=== PATIENT | female | born 1960 | race Caucasian/White ===

== ENCOUNTER → 2018-11-10 | Outpatient (CLI) | payer OTHER ==
--- NOTE | 2018-11-10 09:03 | Diagnostic Imaging Report ---
EXAM: CT Abdomen and Pelvis WITHOUT contrast INDICATION: Renal stone. COMPARISON: None. TECHNIQUE: Abdomen and pelvis were scanned utilizing a multidetector helical scanner from the lung base to the pubic symphysis without administration of IV contrast. Absence of intravenous contrast decreases sensitivity for detection of focal lesions and vascular pathology. Coronal and sagittal reformations were obtained. Stone protocol is performed. IV CONTRAST: None. ORAL CONTRAST: Water RADIATION DOSE: Total DLP: 832.6 mGy*cm Dose modulation, iterative reconstruction, and/or weight based adjustment of the mA/kV was utilized to reduce the radiation dose to as low as reasonably achievable. COMPLICATIONS: None FINDINGS: LINES and TUBES: None. LOWER THORAX: Scattered coronary atherosclerosis. HEPATOBILIARY: Diffuse hepatic steatosis. No focal hepatic lesions. No biliary ductal dilation. GALLBLADDER: No radio-opaque stones or sludge. No wall thickening. SPLEEN: No splenomegaly. PANCREAS: No evidence of focal masses or ductal dilatation. ADRENALS: No adrenal nodules KIDNEYS/URETERS: There are scattered bilateral 1 mm nonobstructing renal stones, for example in the left upper pole on coronal image 74 and right lower pole on image 78. No hydronephrosis. No evidence of solid mass. Hyperdense 5 mm lesion in the right upper pole kidney is too small to characterize, but may represent a hemorrhagic cyst. GI TRACT: No evidence of bowel obstruction. Normal appendix. There is mild perirectal stranding and possible wall thickening. PELVIC ORGANS/BLADDER: Unremarkable. LYMPH NODES: No lymphadenopathy. VESSELS: Unremarkable. PERITONEUM / RETROPERITONEUM: No free air or fluid. BONES: No acute osseous abnormality. No suspicious lytic or blastic lesions. SOFT TISSUES: Unremarkable. IMPRESSION: Scattered punctate bilateral 1 mm nonobstructing renal stones. Mild perirectal stranding and possible wall thickening. Findings may represent, infectious/inflammatory etiologies or postsurgical changes. Suggest direct inspection. Diffuse hepatic steatosis. Signed by: Dr. Denice Long MD on 11/10/2018 9:00 AM
== END ==
LOC: CT 07:47
PROVIDERS: ATTEND Urology
DX: N20.0 Calculus of kidney (principal)
CPT/HCPCS: 74176

== ENCOUNTER → 2018-12-01 | Outpatient (RCR) | payer OTHER | LOC: PT 11-11 09:03 | PROVIDERS: ATTEND Specialist | DX: M17.0 Bilateral primary osteoarthritis of knee (principal); M62.81 Muscle weakness (generalized) ==

== ENCOUNTER 2018-12-03 08:25 | Outpatient (RCR) | payer OTHER | END 2019-01-01 | LOC: PT 08:25 | PROVIDERS: ATTEND Specialist | DX: M17.0 Bilateral primary osteoarthritis of knee (principal); M62.81 Muscle weakness (generalized) ==